=== PATIENT | male | born 2005 | race Caucasian/White ===

== ENCOUNTER 2025-09-11 16:30 | Outpatient (RCR) | payer BC, SELFPAY | END 2025-09-12 07:03 | disposition home or self-care (01) | PROVIDERS: Visit Provider Physician Assistant | DX: S52.592D Other fractures of lower end of left radius, subsequent encounter for closed fracture with routine healing (principal); S52.501D Unspecified fracture of the lower end of right radius, subsequent encounter for closed fracture with routine healing; S52.601D Unspecified fracture of lower end of right ulna, subsequent encounter for closed fracture with routine healing; Z51.89 Encounter for other specified aftercare | CPT/HCPCS: 97110; 97140; 97166; X5282 ==